=== PATIENT | male | born 1970 | race Caucasian/White ===

== ENCOUNTER 2019-01-17 15:34 | Inpatient (IN) ==
[2019-01-17 16:17] LABS: BASO# 0.03 X1000 (0.0-0.2); BASO% 0.5 % (0.0-0.8); EOS# 0.01 X1000 (0.0-0.7); EOS% 0.2 % (0.0-10.0); HEMOGLOBIN 16.6 g/dL (14.0-18.0); IMM GRAN# 0.01 X1000 (0.0-0.04); IMM GRAN% 0.2 % (0.0-0.5); LYMPH# 2.64 X1000 (1.2-3.4); LYMPH% 41.7 % (20.5-51.1); MCHC 33.9 g/dL (33-37); MCV 94.4 FL (81-99); MONO# 0.59 X1000 (0.11-0.59); MONO% 9.3 % (1.7-9.3); NEUT# 3.05 X1000 (1.4-6.5); NEUT% 48.1 % (42.2-75.2); PLT 179 X1000 (130-400); RBC 5.19 XMIL (4.7-6.1); RDW 13.8 % (11.5-14.5); WBC 6.33 X1000 (4.8-10.8)
[2019-01-17 16:32] LABS: AGAP 26; ALBUMIN 4.4 g/dL (3.5-5.0); ALKALINE PHOSPHATASE 88 U/L (32-122); BUN 9 mg/dL (8-22); CALCIUM 8.5 mg/dL (8.8-10.2); CHLORIDE 98 mmol/L (98-107); COSMO 284; CREATININE 0.6 mg/dL (0.7-1.2); ESTIMATED GFR > 60; GLUCOSE 146 mg/dL (70-104); GOT 170 U/L (10-34); GPT 140 U/L (10-44); LIPASE 70 U/L (13-60); POTASSIUM 3.9 mmol/L (3.5-5.1); SODIUM 142 mmol/L (136-145); TCO2 17 mmol/L (25-35); TOTAL PROTEIN 7.1 g/dL (6.3-8.3)
[2019-01-17] MEDS ORDERED: NS 1,000 ML IV ONE ×2 (16:51→19:07)
[2019-01-17 16:55] LABS: BILIRUBIN URINE NEGATIVE (NEGATIVE); BLOOD URINE 2+ (NEGATIVE); CLARITY CLEAR (CLEAR); COLOR YELLOW; GLUCOSE URINE NEGATIVE (NEGATIVE); KETONE URINE NEGATIVE (NEGATIVE); LEUKOCYTES URINE NEGATIVE (NEGATIVE); NITRITE URINE NEGATIVE (NEGATIVE); PROTEIN URINE 1+(30 mg/dL) mg/dL (NEGATIVE); UROBILINOGEN URINE NORMAL
[2019-01-17 16:56] LABS: UR AMPHETAMINES QUAL NONE DETECTED (NONE DETECT); UR BARBITUATES QUAL NONE DETECTED (NONE DETECT); UR BENZODIAZEPIN QUAL NONE DETECTED (NONE DETECT); UR CANNABINOIDS QUAL NONE DETECTED (NONE DETECT); UR COCAINE QUAL NONE DETECTED (NONE DETECT); UR METHADONE QUAL NONE DETECTED (NONE DETECT); UR METHAMPHETAMINE QUAL NONE DETECTED (NONE DETECT); UR OPIATES QUAL NONE DETECTED (NONE DETECT); UR OXYCODONE QUAL NONE DETECTED (NONE DETECT); UR PCP QUAL NONE DETECTED (NONE DETECT); UR PROPOXYPHENE QUAL NONE DETECTED (NONE DETECT); UR TCA QUAL NONE DETECTED (NONE DETECT); URINE BACTERIA 1+ /HFP; URINE CAST EPITHELIAL PRESENT /LPF; URINE CRYSTAL NONE SEEN /HPF; URINE EPITHELIAL CELLS <10 /HPF (<10); URINE RBC <10 /HPF (<10); URINE SOURCE CLEAN CATCH; URINE WBC <10 /HPF (<10); URINE YEAST NONE SEEN /HPF
--- NOTE | 2019-01-17 17:22 | EKG Report ---
Test Performed on : 01/17/2019 3:59:10 PM Test Reason : tachycardia etoh psych Blood Pressure : / mmHG Vent. Rate : 126 BPM Atrial Rate : 126 BPM P-R Int : 142 ms QRS Dur : 080 ms QT Int : 304 ms P-R-T Axes : 051 -03 052 degrees QTc Int : 440 ms Sinus tachycardia. Cannot rule out Anterior infarct , age undetermined Abnormal ECG When compared with ECG of 12-FEB-2017 22:01, Minimal criteria for Inferior infarct are no longer present Unconfirmed Result
[2019-01-17 17:59] LABS: FREE T4 1.38 ng/dL (0.93-1.70); TSH 0.97 uIUmL (0.27-4.20)
[2019-01-17] MEDS: ATIVAN IV PRN (21:06)
[2019-01-18] MEDS: ATIVAN IV PRN ×4 (00:07→17:31)
[2019-01-18] MEDS ORDERED: ATIVAN IV ONE (06:37)
[2019-01-18] MEDS ORDERED: BENTYL PO PRN (06:49)
[2019-01-18] MEDS ORDERED: ATARAX PO PRN (06:49)
[2019-01-18] MEDS ORDERED: SALINE LOCK IV FLUID XX ONE (06:49)
[2019-01-18] MEDS ORDERED: M.V.I.-12 10 ML, FOLIC ACID 1 MG, MAGNESIUM SULFATE 1 GM, THIAMINE 100 MG in NS 1,000 ML IV ONE ×2 (06:49→08:00)
[2019-01-18] MEDS: LIBRIUM PO SCH ×3 (07:31→18:26)
[2019-01-18] MEDS ORDERED: THORAZINE 25 MG in NS 25 ML IV PRN (09:49)
[2019-01-18] MEDS ORDERED: ATARAX PO SCH (11:30)
[2019-01-18] MEDS: NS 1,000 ML IV SCH ×2 (11:47→20:29)
[2019-01-18 13:37] LABS: HEMOGLOBIN 12.4 g/dL (14.0-18.0); MCH 31.8 PG (27-31); MCHC 33.5 g/dL (33-37); MCV 94.9 FL (81-99); MPV 10.2 FL (7.4-10.4); RBC 3.9 XMIL (4.7-6.1); RDW 13.2 % (11.5-14.5); WBC 3.23 X1000 (4.8-10.8)
--- NOTE | 2019-01-18 13:46 | HISTORY AND PHYSICAL ---
ADDENDUM: I saw the patient [id number] and fully agree with the assessment and plan of nurse practitioner, Lia Valle. This is a 48-year-old gentleman, who had suicidal ideation and has been drinking alcohol excessively. He has been agitated and has been having possible alcohol withdrawal because of which we have initiated him on IV Ativan drip. We are going to keep him here in the intensive care unit with supportive care, including IV fluids and banana bags. We will have a [facility] evaluation once he is medically stable. cc: Kassandra Medina MD
[2019-01-18 14:01] LABS: AGAP 11; ALBUMIN 3.1 g/dL (3.5-5.0); ALKALINE PHOSPHATASE 66 U/L (32-122); BUN 7 mg/dL (8-22); CALCIUM 7.1 mg/dL (8.8-10.2); CHLORIDE 104 mmol/L (98-107); COSMO 275; CREATININE 0.5 mg/dL (0.7-1.2); ESTIMATED GFR > 60; GLUCOSE 95 mg/dL (70-104); GOT 110 U/L (10-34); GPT 85 U/L (10-44); MAGNESIUM 0.8 mg/dL (1.5-2.7); POTASSIUM 3.2 mmol/L (3.5-5.1); SODIUM 139 mmol/L (136-145); TCO2 24 mmol/L (25-35); TOTAL PROTEIN 4.8 g/dL (6.3-8.3)
[2019-01-18] MEDS ORDERED: MAGNESIUM SULFATE 2 GM/S.W.I. 2 GM/50 ML IVPB IV ONE (14:04)
[2019-01-18] MEDS ORDERED: POTASSIUM CHLORIDE 20 MEQ/SWI 20 MEQ/100 ML IVPB IV ONE (14:04)
--- NOTE | 2019-01-18 14:18 | HISTORY AND PHYSICAL ---
CHIEF COMPLAINT: Alcohol intoxication, suicidal ideation. HISTORY OF PRESENT ILLNESS: This is a 48-year-old gentleman with a prior history of alcohol use and abuse, diabetes mellitus, hypertension and depression. He presented to the emergency room with his daughter who stated that the patient is intoxicated, he has been drinking continuously for the last week calling her daily stating that he is going to drink itself to . The patient lost his job 6 months ago secondary to alcohol and a DUI and he is . He has been because of alcohol. He was found to have a blood alcohol of 446 on arrival to the emergency room. He was given a banana bag, Ativan along with IV hydration and admitted to ICU for further evaluation. PAST MEDICAL HISTORY: 1. Diabetes mellitus type 2. 2. Hypertension. 3. Obstructive sleep apnea. 4. Gastroesophageal reflux disease. 5. Rheumatoid arthritis. 6. Depression. 7. Anxiety. PAST SURGICAL HISTORY: Gastric bypass, left foot surgery and tonsillectomy. SOCIAL HISTORY: He drinks vodka daily. He denies illicit drug use. He does smoke a pack a day. He is . He lives alone. He lost his job 6 months ago secondary to a DUI. REVIEW OF SYSTEMS: Discussed with the patient with pertinent positives stated in the HPI. He denied any syncope, dizziness, chest pain, palpitations, shortness of breath, cough, fever, chills, any night sweats, any recent weight loss or weight gain, nausea, vomiting, diarrhea, constipation, any black or bloody vomitus or stools, any hematuria, dysuria, frequency, urgency. PHYSICAL EXAMINATION: GENERAL: This is a 48-year-old gentleman who is sitting up in the ICU. He is anxious. VITAL SIGNS: Blood pressure is 146/94 with a heart rate ranging from 100 to 126, respirations are 20 to 22, temperature 99.1 degrees with room air saturations 95% on. HEENT: Pupils are equal, round, react to light. EOMs are intact. Sclerae anicteric. Head is normocephalic, atraumatic. Mucous membranes are moist. NECK: Supple with trachea midline. CARDIOVASCULAR: Regular rate and rhythm. S1 and S2 are appreciated. He is tachycardic. He does have some generalized lower extremity edema. Calves are nontender bilateral with peripheral pulses palpable x4 extremities. PULMONARY: Breath sounds are clear with no increased work of breathing noted. Chest rises and falls symmetric with respiration. Chest wall is nontender to palpation. GASTROINTESTINAL: Abdomen soft, nontender, nondistended with bowel sounds in all 4 quadrants. : No CVA or suprapubic tenderness. SKIN: Warm and dry. NEUROLOGIC: He is awake and alert and oriented. He appears anxious. LABS: WBC is 6.3 with hemoglobin 16.6, hematocrit 49, platelets 179,000. Sodium 142, potassium 3.9, BUN 9, creatinine 0.6 with a glucose of 146. TSH is 0.97 with a free T4 of 1.38. Urinalysis is essentially negative. Urine drug screen reveals none detected with blood alcohol being 446. EKG reveals sinus tachycardia at a rate of 126. ASSESSMENT AND PLAN: 1. Alcohol intoxication. 2. Alcoholic hepatitis. 3. Suicidal ideation. 4. Diabetes mellitus type 2. 5. Hypertension. 6. Gastroesophageal reflux disease. 7. Obstructive sleep apnea. 8. Depression. PLAN: The patient has been admitted to ICU and placed on telemetry which we will continue. We will continue with neuro checks. Will check a CBC, CMP and magnesium now and then again in the morning. Will start an Ativan drip. Continue with IV hydration. We will monitor electrolytes and replete as appropriate. Rotate saline with a banana bag daily, Prilosec daily. For DVT prophylaxis will use SCDs holding off on any anticoagulation as we are unsure of any history of varices or recent fall or injury. Further treatments pending hospital course. Plan was discussed with Dr. Medina. Dictated by RONALD Rowell for Kassandra Medina MD cc: RONLAD Rowell MD
[2019-01-18 18:41] LABS: AGAP 10; ALBUMIN 3.1 g/dL (3.5-5.0); BUN 7 mg/dL (8-22); CALCIUM 7.3 mg/dL (8.8-10.2); CHLORIDE 105 mmol/L (98-107); COSMO 276; CREATININE 0.6 mg/dL (0.7-1.2); ESTIMATED GFR > 60; GLUCOSE 133 mg/dL (70-104); PHOSPHORUS 1.8 mg/dL (2.7-4.5); POTASSIUM 3.4 mmol/L (3.5-5.1); SODIUM 138 mmol/L (136-145); TCO2 24 mmol/L (25-35)
[2019-01-18] MEDS: ATIVAN 20 MG in NS 190 ML IV SCH (19:30)
[2019-01-18] MEDS ORDERED: THORAZINE 25 MG in NS 25 ML IV ONE (22:00)
[2019-01-18 22:20] LABS: AGAP 13; ALBUMIN 3.4 g/dL (3.5-5.0); BUN 7 mg/dL (8-22); CALCIUM 7.5 mg/dL (8.8-10.2); CHLORIDE 104 mmol/L (98-107); COSMO 276; CREATININE 0.5 mg/dL (0.7-1.2); ESTIMATED GFR > 60; GLUCOSE 113 mg/dL (70-104); PHOSPHORUS 1.7 mg/dL (2.7-4.5); POTASSIUM 3.4 mmol/L (3.5-5.1); SODIUM 139 mmol/L (136-145); TCO2 23 mmol/L (25-35)
[2019-01-19] MEDS: LIBRIUM PO SCH ×2 (00:02→06:53)
[2019-01-19] MEDS: ATIVAN IV PRN ×12 (00:02→22:46)
[2019-01-19 02:12] LABS: AGAP 12; ALBUMIN 3.2 g/dL (3.5-5.0); BUN 5 mg/dL (8-22); CALCIUM 7.6 mg/dL (8.8-10.2); CHLORIDE 106 mmol/L (98-107); COSMO 279; CREATININE 0.5 mg/dL (0.7-1.2); ESTIMATED GFR > 60; GLUCOSE 100 mg/dL (70-104); PHOSPHORUS 2.1 mg/dL (2.7-4.5); POTASSIUM 3.2 mmol/L (3.5-5.1); SODIUM 141 mmol/L (136-145); TCO2 23 mmol/L (25-35)
[2019-01-19] MEDS: NS 1,000 ML IV SCH ×3 (05:19→21:17)
[2019-01-19] MEDS: ATIVAN 20 MG in NS 190 ML IV SCH ×3 (05:20→22:04)
[2019-01-19] MEDS ORDERED: THORAZINE IV PRN (06:02)
[2019-01-19] MEDS ORDERED: NS IV PRN (06:02)
[2019-01-19] MEDS: PRILOSEC PO SCH (06:53)
[2019-01-19 07:01] LABS: HEMATOCRIT 39.8 % (42.0-52.0); HEMOGLOBIN 13.1 g/dL (14.0-18.0); MCH 31.3 PG (27-31); MCHC 32.9 g/dL (33-37); MCV 95.2 FL (81-99); MPV 11.1 FL (7.4-10.4); RBC 4.18 XMIL (4.7-6.1); RDW 13.2 % (11.5-14.5); WBC 3.23 X1000 (4.8-10.8)
[2019-01-19 07:23] LABS: AGAP 10; ALBUMIN 3.3 g/dL (3.5-5.0); ALKALINE PHOSPHATASE 74 U/L (32-122); BUN 5 mg/dL (8-22); CALCIUM 7.9 mg/dL (8.8-10.2); CHLORIDE 108 mmol/L (98-107); COSMO 278; CREATININE 0.5 mg/dL (0.7-1.2); ESTIMATED GFR > 60; GLUCOSE 98 mg/dL (70-104); GOT 87 U/L (10-34); GPT 82 U/L (10-44); MAGNESIUM 1.2 mg/dL (1.5-2.7); POTASSIUM 3.3 mmol/L (3.5-5.1); SODIUM 141 mmol/L (136-145); TCO2 23 mmol/L (25-35); TOTAL PROTEIN 5.5 g/dL (6.3-8.3)
[2019-01-19] MEDS: ROBAXIN PO PRN ×3 (08:26→22:40)
[2019-01-19] MEDS ORDERED: THIAMINE IV ONE ×6 (09:00)
[2019-01-19] MEDS ORDERED: M V I IV ONE ×6 (09:00)
[2019-01-19] MEDS ORDERED: [UNRECOGNIZED DRUG - OTHER] IV ONE ×6 (09:00)
[2019-01-19] MEDS ORDERED: FOLIC ACID IV ONE ×6 (09:00)
[2019-01-19] MEDS ORDERED: MAGNESIUM SULFATE IV ONE ×6 (09:00)
[2019-01-19] MEDS ORDERED: MAGNESIUM SULFATE 2 GM/S.W.I. 2 GM/50 ML IVPB IV ONE (11:02)
[2019-01-19] MEDS ORDERED: KLOR-CON PO ONE (11:02)
--- NOTE | 2019-01-19 11:24 | PROGRESS NOTE ---
DATE: 01/19/2019 SUBJECTIVE: The patient denies having any acute complaints, but continues to have restlessness and periods of agitation. OBJECTIVE: Vital Signs: Temperature 97.9 degrees, pulse 101 per minute, respiratory rate 14 per minute, blood pressure 157/96, pulse oximetry 98% on room air. General: The patient is alert and oriented x3. He does not appear to be in any acute distress at this time. Cardiovascular: First and second heart sounds are audible without any murmurs or gallops. Respiratory: No respiratory distress noted. Bilateral lung air entry is good without any rales or rhonchi. Gastrointestinal: Abdomen is benign. DIAGNOSTIC DATA: CBC shows WBC count of 3.23, hemoglobin 13.1, hematocrit 39.8, and platelet count of 102,000. In comparison, his white blood cell count was 3.23 yesterday, and platelet counts were 92. Comprehensive metabolic panel obtained this morning showed potassium level of 3.3, and total bilirubin of 1.2, with AST 87 and ALT 82. Albumin levels were found to be 3.3. Rest of the comprehensive metabolic panel was nondiagnostic. Magnesium levels were found to be 1.2. IMPRESSION: 1. Suicidal ideation. 2. Alcohol abuse with hepatitis. 3. Hypokalemia and hypomagnesemia. PLAN: The patient is having alcohol withdrawal syndrome, and we are going to continue with IV lorazepam as per protocol. He will be kept in the intensive care unit, and we are going to continue giving him IV fluids along with general supportive care. Electrolyte supplements will also be provided, and we can move him out of the intensive care unit once he gets better. cc: Kassandra Medina MD
[2019-01-19] MEDS ORDERED: SEROQUEL PO ONE (15:53)
[2019-01-19] MEDS: NS IV PRN ×2 (18:09→22:03)
[2019-01-19] MEDS: THORAZINE IV PRN ×2 (18:09→22:03)
[2019-01-19] MEDS ORDERED: HALDOL IV ONE (19:02)
[2019-01-19] MEDS: SEROQUEL PO SCH (21:17)
[2019-01-19 23:11] LABS: BILIRUBIN URINE NEGATIVE (NEGATIVE); BLOOD URINE NEGATIVE (NEGATIVE); GLUCOSE URINE NEGATIVE (NEGATIVE); KETONE URINE NEGATIVE (NEGATIVE); LEUKOCYTES URINE NEGATIVE (NEGATIVE); NITRITE URINE NEGATIVE (NEGATIVE); PROTEIN URINE NEGATIVE (NEGATIVE); UROBILINOGEN URINE NORMAL
[2019-01-19 23:12] LABS: CLARITY CLEAR (CLEAR); COLOR YELLOW
[2019-01-19 23:19] LABS: URINE BACTERIA NEGATIVE /HFP; URINE EPITHELIAL CELLS <10 /HPF (<10); URINE RBC <10 /HPF (<10); URINE SOURCE CATH; URINE WBC <10 /HPF (<10)
[2019-01-20] MEDS: THORAZINE IV PRN (00:40)
[2019-01-20] MEDS: NS IV PRN (00:40)
[2019-01-20] MEDS: NS 1,000 ML IV SCH ×3 (04:12→21:11)
[2019-01-20] MEDS: PRILOSEC PO SCH (06:16)
[2019-01-20 06:36] LABS: EOS# 0.04 X1000 (0.0-0.7); EOS% 0.6 % (0.0-10.0); HEMATOCRIT 42.8 % (42.0-52.0); HEMOGLOBIN 14.1 g/dL (14.0-18.0); IMM GRAN# 0.01 X1000 (0.0-0.04); IMM GRAN% 0.2 % (0.0-0.5); LYMPH% 12.2 % (20.5-51.1); MCH 31.8 PG (27-31); MCHC 32.9 g/dL (33-37); MCV 96.6 FL (81-99); MONO# 0.31 X1000 (0.11-0.59); MONO% 4.7 % (1.7-9.3); MPV 11.7 FL (7.4-10.4); NEUT% 82.3 % (42.2-75.2); PLT 104 X1000 (130-400); RBC 4.43 XMIL (4.7-6.1); RDW 13.8 % (11.5-14.5); WBC 6.56 X1000 (4.8-10.8)
[2019-01-20 06:55] LABS: AGAP 16; BUN 3 mg/dL (8-22); CALCIUM 8.5 mg/dL (8.8-10.2); CHLORIDE 112 mmol/L (98-107); COSMO 294; CREATININE 0.4 mg/dL (0.7-1.2); ESTIMATED GFR > 60; GLUCOSE 153 mg/dL (70-104); MAGNESIUM 1.2 mg/dL (1.5-2.7); POTASSIUM 3.6 mmol/L (3.5-5.1); SODIUM 148 mmol/L (136-145); TCO2 20 mmol/L (25-35)
[2019-01-20] MEDS: PRINIVIL PO SCH ×2 (10:42→21:11)
[2019-01-20] MEDS: SEROQUEL PO SCH ×2 (10:43→21:11)
[2019-01-20] MEDS ORDERED: OFIRMEV 1000 MG/ISOTONIC SOLN 1,000 MG/100 ML BOTTLE IV PRN (12:53)
[2019-01-20] MEDS: ATIVAN 20 MG in NS 190 ML IV SCH (17:28)
[2019-01-20] MEDS: ATIVAN IV PRN (21:16)
--- NOTE | 2019-01-20 22:57 | PROGRESS NOTE ---
DATE: 01/20/2019 SUBJECTIVE: Patient currently is somewhat sedated as he is on an Ativan drip. PHYSICAL EXAMINATION: Vital Signs: Temperature 97.4, pulse 117, respiratory rate 18, BP 179/64 to 129/78. General: Patient is sedated. He is in no respiratory distress lying in the bed. HEENT: Normocephalic. Neck: Supple. Cardiovascular: Regular rate. Chest: Clear. Abdomen: Soft, obese. Extremities: Moves all extremities. Neurologic: No changes. ASSESSMENT: 1. Acute suicidal ideation. 2. Alcohol abuse with hepatitis. 3. Hypokalemia. 4. Hypomagnesemia. PLAN: We are going to continue to aggressively wean his Ativan drip. Continue to follow his labs. Blood pressures are improving. He is still somewhat tachycardic. TIME SPENT: 34 minutes was spent in total care. cc: Tawanda Conti MD
[2019-01-21] MEDS: ATIVAN IV PRN ×11 (00:51→23:46)
[2019-01-21] MEDS: NS IV PRN ×2 (00:52→09:52)
[2019-01-21] MEDS: THORAZINE IV PRN ×2 (00:52→09:52)
[2019-01-21] MEDS: NS 1,000 ML IV SCH ×3 (04:20→20:51)
[2019-01-21] MEDS: PRILOSEC PO SCH (06:22)
[2019-01-21] MEDS: PRINIVIL PO SCH ×3 (08:00→21:14)
[2019-01-21] MEDS: SEROQUEL PO SCH ×3 (08:00→21:15)
[2019-01-21 09:31] LABS: INR 0.97; PROTIME 13.4 Seconds (11.0-16.0)
--- NOTE | 2019-01-21 09:33 | PROGRESS NOTE ---
DATE: 01/21/2019 SUBJECTIVE: The patient, according to the nursing staff, continued to be agitated at times and needed to continue to be on an Ativan drip. No other issues noted overnight. OBJECTIVE: Vital Signs: Temperature 98.4 degrees, heart rate 80, respiratory rate 29, blood pressure 177/101, O2 saturation 98% on room air. General Examination: This is a chronically ill- appearing and looking older than his stated age, 48-year-old, male, lying in bed, in no acute distress. Cardiovascular Examination: S1 and S2 heard. No murmurs, gallops, or rubs. Regular rate and rhythm. Tachycardic. Respiratory Examination: Clear bilaterally to auscultation. No work of breathing or using accessory muscles. Abdomen: Soft. Nontender to palpation. Bowel sounds present. No organomegaly. Extremities: No clubbing, cyanosis, or edema. Peripheral pulses present in both legs. Neurological Examination: The patient continues to be confused, mumbled unintelligible words. Moved 4 extremities spontaneously. Laboratory Data: Pending. ASSESSMENT: 1. Alcohol intoxication. 2. Suicidal attempt. 3. Hypokalemia. 4. Hypomagnesemia. PLAN: At this point, I am not able to get any information about any suicidal ideation because the patient is very confused. I think from alcohol intoxication, he will go into alcohol withdrawal. We will continue with the Ativan drip. We are awaiting labs regarding liver function tests. I will adjust our treatment accordingly for hypokalemia and hypomagnesemia. If those problems still persist, we will replenish those. cc: Marek Martinez MD
[2019-01-21 09:54] LABS: ALBUMIN 3.2 g/dL (3.5-5.0); DIRECT BILIRUBIN 0.3 mg/dL (0.00-0.20); MAGNESIUM 1.2 mg/dL (1.5-2.7); PHOSPHORUS 2.9 mg/dL (2.7-4.5); TOTAL BILIRUBIN 0.8 mg/dL (0.20-1.00); TOTAL PROTEIN 5.1 g/dL (6.3-8.3)
[2019-01-21 09:57] LABS: AGAP 11; BUN 6 mg/dL (8-22); CALCIUM 8.3 mg/dL (8.8-10.2); CHLORIDE 108 mmol/L (98-107); COSMO 275; CREATININE 0.5 mg/dL (0.7-1.2); ESTIMATED GFR > 60; GLUCOSE 89 mg/dL (70-104); POTASSIUM 3.5 mmol/L (3.5-5.1); SODIUM 139 mmol/L (136-145); TCO2 21 mmol/L (25-35)
[2019-01-21] MEDS: HALDOL IV PRN ×3 (10:42→21:03)
[2019-01-21] MEDS: VASOTEC IV SCH (15:37)
[2019-01-21] MEDS: ATIVAN 20 MG in NS 190 ML IV SCH (17:22)
[2019-01-21] MEDS: APRESOLINE IV PRN (22:09)
[2019-01-22] MEDS: ATIVAN IV PRN ×9 (00:45→23:38)
[2019-01-22] MEDS: HALDOL IV PRN ×3 (01:14→23:38)
[2019-01-22] MEDS: THORAZINE IV PRN (01:49)
[2019-01-22] MEDS: NS IV PRN (01:49)
[2019-01-22] MEDS: NS 1,000 ML IV SCH ×3 (02:55→19:17)
[2019-01-22] MEDS: VASOTEC IV SCH ×2 (02:58→15:54)
[2019-01-22] MEDS: APRESOLINE IV PRN ×2 (04:25→23:38)
[2019-01-22 05:54] LABS: AGAP 18; BUN 4 mg/dL (8-22); CALCIUM 8.5 mg/dL (8.8-10.2); CHLORIDE 107 mmol/L (98-107); COSMO 279; CREATININE 0.4 mg/dL (0.7-1.2); ESTIMATED GFR > 60; GLUCOSE 88 mg/dL (70-104); MAGNESIUM 1.1 mg/dL (1.5-2.7); SODIUM 142 mmol/L (136-145); TCO2 18 mmol/L (25-35)
[2019-01-22 06:14] LABS: ALBUMIN 3.3 g/dL (3.5-5.0); DIRECT BILIRUBIN 0.3 mg/dL (0.00-0.20); TOTAL BILIRUBIN 0.8 mg/dL (0.20-1.00); TOTAL PROTEIN 5.3 g/dL (6.3-8.3)
[2019-01-22] MEDS: PRILOSEC PO SCH (08:55)
[2019-01-22] MEDS ORDERED: POTASSIUM CHLORIDE 60 MEQ in NS 500 ML IV ONE (09:43)
[2019-01-22] MEDS: SEROQUEL PO SCH ×2 (09:58→20:49)
--- NOTE | 2019-01-22 11:01 | PROGRESS NOTE ---
DATE: 01/22/2019 SUBJECTIVE: Patient, according to the nursing staff, has been agitated overnight and needed to have restraints and also a Ativan drip and also added Haldol IV push as needed. Upon my examination this morning, he is still sleepy. OBJECTIVE: Vital Signs: Temperature 97.6 degrees, heart rate 101, respiratory rate 20, blood pressure 140/87, O2 saturation 96% on room air. General Examination: This is a chronically ill- appearing, looking older than his stated age 48-year-old male lying in bed in no acute distress. Cardiovascular: S1, S2 heard. No murmurs, gallops, or rubs. Regular rate and rhythm. Respiratory: Clear bilaterally to auscultation. No work of breathing. Not using accessory muscles. Abdomen: Soft, a little bit distended but nontender to palpation. Bowel sounds present. No organomegaly. Extremities: No clubbing, cyanosis, or edema. Peripheral pulses present in both legs. Neurological: The patient continues to be confused. At this time, he is lethargic because he received Ativan. Moves all 4 extremities spontaneously. LABORATORY DATA: Reviewed. ASSESSMENT AND PLAN: 1. Alcohol intoxication. 2. Suicidal attempt. 3. Hypokalemia. 4. Hyponatremia. PLAN: At this point, the patient continues to be agitated. He was admitted for alcohol intoxication but I think now he should be going through alcohol withdrawal. He is agitated. I think considering that he is drinking plenty of alcohol since he is in his 20s, I think he may have a degree of cognitive impairment secondary to chronic alcohol abuse. In any case, we will continue to monitor this patient closely here in the intensive care unit. Monitor also his electrolytes. Today the potassium is 3.0. We are going to replenish it as well as magnesium which is 1.1 today. Phosphorus is okay. Family in this case, daughter and , are in the room so they have been informed about the prognosis. cc: Marek aMrtinez MD
[2019-01-22] MEDS: ATIVAN 20 MG in NS 190 ML IV SCH (18:16)
[2019-01-22] MEDS: ROBAXIN PO PRN (19:17)
[2019-01-23] MEDS: ATIVAN IV PRN ×4 (01:20→20:02)
[2019-01-23] MEDS: VASOTEC IV SCH ×2 (03:32→15:40)
[2019-01-23] MEDS: NS IV PRN (03:33)
[2019-01-23] MEDS: NS 1,000 ML IV SCH (03:33)
[2019-01-23] MEDS: HALDOL IV PRN (03:33)
[2019-01-23] MEDS: THORAZINE IV PRN (03:33)
[2019-01-23] MEDS: PRILOSEC PO SCH (06:10)
[2019-01-23 06:30] LABS: AGAP 14; BUN 5 mg/dL (8-22); CALCIUM 8.7 mg/dL (8.8-10.2); CHLORIDE 111 mmol/L (98-107); COSMO 282; CREATININE 0.4 mg/dL (0.7-1.2); ESTIMATED GFR > 60; GLUCOSE 91 mg/dL (70-104); POTASSIUM 3.1 mmol/L (3.5-5.1); SODIUM 143 mmol/L (136-145); TCO2 18 mmol/L (25-35)
[2019-01-23 06:43] LABS: TOTAL BILIRUBIN 0.6 mg/dL (0.20-1.00)
[2019-01-23 06:44] LABS: ALBUMIN 3.1 g/dL (3.5-5.0); DIRECT BILIRUBIN 0.2 mg/dL (0.00-0.20); TOTAL PROTEIN 5.8 g/dL (6.3-8.3)
[2019-01-23] MEDS ORDERED: POTASSIUM CHLORIDE 60 MEQ in NS 500 ML IV ONE (08:20)
[2019-01-23 08:31] LABS: HEMATOCRIT 38.8 % (42.0-52.0); MCH 31.9 PG (27-31); MCHC 33.5 g/dL (33-37); MCV 95.3 FL (81-99); MPV 10.9 FL (7.4-10.4); RBC 4.07 XMIL (4.7-6.1); RDW 13.5 % (11.5-14.5); WBC 4.29 X1000 (4.8-10.8)
[2019-01-23] MEDS: SEROQUEL PO SCH ×2 (08:33→20:02)
[2019-01-23] MEDS: NORVASC PO SCH ×2 (09:27→20:02)
--- NOTE | 2019-01-23 10:04 | PROGRESS NOTE ---
DATE: 01/23/2019 SUBJECTIVE: The patient looks to be a little bit more oriented today. He was eating part of his meal yesterday. OBJECTIVE: Vital Signs: Temperature 97.5 degrees, heart rate 96, respiratory rate 20, blood pressure 174/106, O2 saturation 96% on room air. General: This is a 48-year-old male lying in bed in no acute distress. Cardiovascular: S1, S2 heard. No murmurs, gallops, or rubs. Regular rate and rhythm. Respiratory: Clear bilaterally to auscultation. No work of breathing or using accessory muscles. Abdomen: Soft, a little bit distended. Nontender to palpation. Bowel sounds present. No organomegaly. Extremities: No clubbing. No cyanosis or edema. Peripheral pulses present in both legs. Neurological: Patient is a little bit less confused but not agitated at this time. He continues to be on Ativan drip. Moves 4 extremities spontaneously. LABORATORY DATA: CBC is okay with BMP that reveals potassium 3.1. ASSESSMENT AND PLAN: 1. Alcohol intoxication. 2. Suicidal attempt. 3. Hypokalemia. PLAN: At this point, the patient is a little bit more awake today so we are going to stop Ativan drip, and see how he does. If he becomes restless again, we will restart the drip. The patient also is on Haldol IV p.r.n. for agitation as well. We are going to replenish potassium today. We will continue to monitor this patient here in the intensive care unit. Whenever the patient is more alert and awake, we will consult [facility] for this suicidal attempt. At this point, we will continue to monitor. cc: Marek Martinez MD [facility]
[2019-01-23] MEDS: CLINIMIX E 4.25%-5% SOLUTION 1,000 ML IV SCH ×2 (12:47→22:52)
[2019-01-23] MEDS: LIPOSYN 20% 250 ML IV SCH (12:55)
[2019-01-24] MEDS: APRESOLINE IV PRN ×2 (01:16→23:10)
[2019-01-24] MEDS: ATIVAN IV PRN ×5 (01:38→23:20)
[2019-01-24] MEDS: VASOTEC IV SCH ×2 (02:54→16:12)
[2019-01-24] MEDS: HALDOL IV PRN (04:03)
[2019-01-24] MEDS: PRILOSEC PO SCH (06:00)
[2019-01-24 06:45] LABS: HEMATOCRIT 40.6 % (42.0-52.0); HEMOGLOBIN 13.7 g/dL (14.0-18.0); MCH 31.4 PG (27-31); MCHC 33.7 g/dL (33-37); MCV 92.9 FL (81-99); MPV 10.4 FL (7.4-10.4); RBC 4.37 XMIL (4.7-6.1); RDW 13.3 % (11.5-14.5); WBC 3.85 X1000 (4.8-10.8)
[2019-01-24 06:47] LABS: AGAP 12; BUN 4 mg/dL (8-22); CALCIUM 9.3 mg/dL (8.8-10.2); CHLORIDE 107 mmol/L (98-107); COSMO 277; CREATININE 0.4 mg/dL (0.7-1.2); ESTIMATED GFR > 60; GLUCOSE 111 mg/dL (70-104); POTASSIUM 3.3 mmol/L (3.5-5.1); SODIUM 140 mmol/L (136-145); TCO2 21 mmol/L (25-35)
[2019-01-24] MEDS ORDERED: POTASSIUM CHLORIDE 60 MEQ in NS 500 ML IV ONE (10:00)
[2019-01-24] MEDS: LOPRESSOR IV SCH ×3 (10:10→23:10)
[2019-01-24] MEDS: LIPOSYN 20% 250 ML IV SCH (10:11)
[2019-01-24] MEDS: NORVASC PO SCH ×2 (10:11→20:28)
[2019-01-24] MEDS: SEROQUEL PO SCH ×2 (10:11→20:28)
--- NOTE | 2019-01-24 10:11 | PROGRESS NOTE ---
DATE: 01/24/2019 SUBJECTIVE: The patient unfortunately continues to be more confused. Even though he answers some basic questions he is restless most of the time. OBJECTIVE: Vital Signs: Temperature 99.2 degrees, heart rate 116, respiratory 24, blood pressure 169/105, O2 saturation 98% on room air. General: This is a 48-year-old male, lying in bed, in no acute distress. Cardiovascular: S1, S2 heard. No murmurs, gallops, or rubs. Regular rate and rhythm. Respiratory: Clear bilaterally to auscultation. No work of breathing or using accessory muscles. Abdomen: Soft, nontender. A little bit distended. Nontender to palpation. Bowel sounds present. No organomegaly. Extremities: No clubbing, cyanosis, or edema. Peripheral pulses present in both legs. Neurological: Patient is alert and oriented x3. Moves 4 extremities. LABORATORY DATA: Reviewed. ASSESSMENT AND PLAN: 1. Alcohol intoxication. 2. Metabolic encephalopathy. 3. Suicidal attempt. 4. Hypokalemia. At this point, patient continues to be confused. We will continue with Ativan drip. Because patient is not able to eat we are going to continue with Clinimix and lipids. We will replenish potassium today. We will continue to monitor this patient in intensive care unit. Because of his still elevated blood pressure and tachycardia we will add metoprolol 5 mg IV 6 hours scheduled to his current medications. We will continue to monitor this patient closely. cc: Marek Martinez MD
[2019-01-24] MEDS: CLINIMIX E 4.25%-5% SOLUTION 1,000 ML IV SCH ×2 (10:52→23:31)
[2019-01-25] MEDS: VASOTEC IV SCH ×2 (03:47→15:24)
[2019-01-25] MEDS: ATIVAN IV PRN ×11 (03:47→20:19)
[2019-01-25] MEDS: LOPRESSOR IV SCH ×3 (03:47→15:24)
[2019-01-25 06:03] LABS: HEMATOCRIT 40.9 % (42.0-52.0); HEMOGLOBIN 13.6 g/dL (14.0-18.0); MCH 31.3 PG (27-31); MCHC 33.3 g/dL (33-37); MPV 10.2 FL (7.4-10.4); RBC 4.35 XMIL (4.7-6.1); RDW 13.4 % (11.5-14.5); WBC 4.5 X1000 (4.8-10.8)
[2019-01-25] MEDS ORDERED: MAGNESIUM SULFATE 2 GM/S.W.I. 2 GM/50 ML IVPB IV ONE (08:06)
[2019-01-25] MEDS: PRILOSEC PO SCH (08:16)
[2019-01-25] MEDS: POTASSIUM CHLORIDE 20 MEQ/SWI 20 MEQ/100 ML IVPB IV SCH ×2 (08:23→12:27)
[2019-01-25] MEDS: LIPOSYN 20% 250 ML IV SCH (08:24)
[2019-01-25] MEDS: HALDOL IV PRN ×3 (08:34→16:25)
[2019-01-25] MEDS: SEROQUEL PO SCH ×2 (09:24→20:13)
[2019-01-25] MEDS: NORVASC PO SCH ×2 (09:24→20:14)
--- NOTE | 2019-01-25 10:05 | PROGRESS NOTE ---
DATE: 01/25/2019 SUBJECTIVE: The patient remains disoriented and is not able to communicate. He has been getting Ativan that makes sedated as well. OBJECTIVE: Vital Signs: Temperature 98.6 degrees, pulse 103 per minute, respiratory rate 21 per minute, blood pressure 137/82, pulse oximetry 99% on room air. General: Patient is sedated. He opens his eyes momentarily but is not able to communicate at this time. Cardiovascular System: First and second heart sounds are audible without any murmurs or gallops. Respiratory System: Bilateral lung air entry is moderately decreased but there are no rales or rhonchi. Gastrointestinal system: Abdomen is soft and nondistended. Patient is morbidly obese. Normal bowel sounds are present. Musculoskeletal System: No deformities are present. DIAGNOSTIC DATA: CBC is nondiagnostic and chemistry showed potassium level of 3.3 and magnesium levels were done 2 days ago and were found to be 1.1. Rest of the basic metabolic panel done this morning is nondiagnostic. IMPRESSION: 1. Alcohol withdrawal syndrome with history of suicidal ideation. 2. Hypokalemia. 3. Hypomagnesemia. PLAN: We will replenish his potassium and magnesium intravenously and keep giving him Ativan as needed as per protocol for his alcohol withdrawal symptoms. We will continue with supportive care and follow hospital course. cc: Kassandra Medina MD
[2019-01-25] MEDS: APRESOLINE IV PRN (10:58)
[2019-01-25] MEDS: CLINIMIX E 4.25%-5% SOLUTION 1,000 ML IV SCH (15:24)
[2019-01-25] MEDS: ROBAXIN PO PRN (20:14)
[2019-01-26] MEDS: LOPRESSOR IV SCH ×4 (01:08→18:37)
[2019-01-26] MEDS: ATIVAN IV PRN ×4 (01:09→15:54)
[2019-01-26] MEDS: CLINIMIX E 4.25%-5% SOLUTION 1,000 ML IV SCH ×2 (04:48→18:30)
[2019-01-26] MEDS: VASOTEC IV SCH ×2 (04:48→15:54)
[2019-01-26] MEDS: PRILOSEC PO SCH (06:07)
[2019-01-26 06:23] LABS: MCH 31.4 PG (27-31); MCHC 33.3 g/dL (33-37); MCV 94.2 FL (81-99); MPV 10.3 FL (7.4-10.4); RBC 4.46 XMIL (4.7-6.1); RDW 13.2 % (11.5-14.5); WBC 4.15 X1000 (4.8-10.8)
[2019-01-26 06:54] LABS: AGAP 12; ALBUMIN 3.6 g/dL (3.5-5.0); ALKALINE PHOSPHATASE 74 U/L (32-122); BUN 7 mg/dL (8-22); CALCIUM 9.5 mg/dL (8.8-10.2); CHLORIDE 105 mmol/L (98-107); COSMO 276; CREATININE 0.4 mg/dL (0.7-1.2); ESTIMATED GFR > 60; GLUCOSE 109 mg/dL (70-104); GOT 32 U/L (10-34); GPT 35 U/L (10-44); MAGNESIUM 1.6 mg/dL (1.5-2.7); POTASSIUM 3.6 mmol/L (3.5-5.1); SODIUM 139 mmol/L (136-145); TCO2 22 mmol/L (25-35); TOTAL PROTEIN 6.7 g/dL (6.3-8.3)
[2019-01-26] MEDS: NORVASC PO SCH ×2 (08:39→23:16)
[2019-01-26] MEDS: SEROQUEL PO SCH ×2 (08:41→21:16)
[2019-01-26] MEDS: LIPOSYN 20% 250 ML IV SCH (08:49)
--- NOTE | 2019-01-26 10:55 | PROGRESS NOTE ---
DATE: 01/26/2019 SUBJECTIVE: The patient apparently is not requiring an Ativan drip. He had been requiring some Ativan pushes yesterday but he was not on anything during the last night. He is sleepy to my examination this morning and no other issues noted as per nursing staff overnight. OBJECTIVE: Vital Signs: Temperature 97.6 degrees, heart rate 87, respiratory rate 20, blood pressure 140/87, O2 saturation 94% on room air. General Examination: This is a 48-year-old, male, lying in bed, in no acute distress. Cardiovascular Examination: S1 and S2 heard. No murmurs, gallops, or rubs. Regular rate and rhythm. Respiratory Examination: Clear bilaterally to auscultation. No work of breathing or using accessory muscles. Abdomen: Soft, nontender to palpation. Bowel sounds present. No organomegaly. Extremities: No clubbing, cyanosis, or edema. Peripheral pulses present in both legs. Neurological Examination: The patient is still sleepy but awakes to verbal stimuli. Moves 4 extremities spontaneously. Laboratory Data: Reviewed. ASSESSMENT AND PLAN: 1. Alcohol withdrawal syndrome with history of suicidal ideation. 2. Hypokalemia. 3. Hyponatremia. 4. At this point, the patient is more stable so we will see how he does in the intensive care unit. Try not to give him any sedating medications, only as needed. We will continue with Clinimix and lipids. He is more awake and alert. We will let him eat as of today. We will continue to monitor this patient in the intensive care unit. cc: Marek Martinez MD
[2019-01-26] MEDS ORDERED: NS 1,000 ML IV ONE (18:34)
[2019-01-27] MEDS: LOPRESSOR IV SCH ×2 (01:57→07:07)
[2019-01-27] MEDS: VASOTEC IV SCH (03:50)
[2019-01-27] MEDS: PRILOSEC PO SCH (07:07)
[2019-01-27] MEDS: LIPOSYN 20% 250 ML IV SCH (07:16)
[2019-01-27] MEDS: NORVASC PO SCH ×2 (08:11→21:34)
[2019-01-27] MEDS: SEROQUEL PO SCH ×2 (08:12→21:35)
[2019-01-27] MEDS ORDERED: LOPRESSOR IV PRN (10:29)
--- NOTE | 2019-01-27 10:35 | PROGRESS NOTE ---
DATE: 01/27/2019 SUBJECTIVE: Patient is not requiring Ativan drip but he has been very sleepy over the last 24 hours. Patient has not received any Ativan p.r.n. for last 3 hours but is receiving Seroquel 50 mg p.o. b.i.d. OBJECTIVE: Vital Signs: Temperature 96.7 degrees, heart rate 84, respiratory rate 20, blood pressure 139/84, O2 saturation 96% on room air. General: This is a 48-year-old male lying in bed, in no acute distress. Cardiovascular: S1, S2 heard. No murmurs, gallops, or rubs. Regular rate and rhythm. Respiratory: Clear bilaterally to auscultation. No work of breathing or using accessory muscles. Abdomen: Soft, nontender to palpation. Bowel sounds present. No organomegaly. Extremities: No clubbing, cyanosis, or edema. Peripheral pulses present in both legs. Neurological: Patient is sleepy. Awakes to verbal stimuli. Moves 4 extremities spontaneously. LABORATORY DATA: Reviewed. ASSESSMENT AND PLAN: Alcohol withdrawal syndrome. At this point, we will continue current management. The patient is sedated so we are going to decrease the dose of Seroquel to 25 mg p.o. b.i.d. We are trying not giving him any sedating medication and see how he does. Because he is not able to eat, will continue with Clinimix and lipids. If he is more awake, let him eat today. We will continue to monitor this patient in intensive care unit. cc: Marek Martinez MD M[facility]
[2019-01-27] MEDS: CLINIMIX E 4.25%-5% SOLUTION 1,000 ML IV SCH ×2 (10:54→23:38)
[2019-01-28] MEDS: PRILOSEC PO SCH (06:10)
[2019-01-28] MEDS: LIPOSYN 20% 250 ML IV SCH (06:10)
[2019-01-28] MEDS: NORVASC PO SCH ×2 (09:25→21:31)
[2019-01-28] MEDS: SEROQUEL PO SCH ×2 (09:26→21:31)
--- NOTE | 2019-01-28 19:52 | PROGRESS NOTE ---
DATE: 01/28/2019 SUBJECTIVE: Patient this morning is much more awake, alert, oriented. He is in no current respiratory distress. States that he feels much better. PHYSICAL EXAMINATION: Temperature 97.6, pulse 89, respiratory 18, BP 109/67.General: Patient is in no respiratory distress. He is very pleasant. He is oriented. HEENT: Normocephalic. Neck: Supple. Cardiovascular: Regular rate. Chest: Clear. Abdomen: Soft. Extremities: Moves all extremities. Neurologic: No changes. ASSESSMENT: Acute alcohol withdrawal with metabolic encephalopathy, both of which appear to have resolved. PLAN: We are going to move him to the floor. Hopefully he can continue to improve and possibly be discharged home over the next day or 2. cc: Tawanda Conti MD
[2019-01-29] MEDS: PRILOSEC PO SCH ×2 (04:59→06:02)
[2019-01-29] MEDS ORDERED: REVIA PO SCH (09:00)
[2019-01-29] MEDS ORDERED: VIVITROL IM ONE (09:00)
[2019-01-29] MEDS: NORVASC PO SCH (09:26)
[2019-01-29] MEDS: SEROQUEL PO SCH (09:27)
[2019-01-29 11:29] VITALS: BP 137/95
--- NOTE | 2019-01-29 13:00 | DISCHARGE SUMMARY ---
ADMISSION DATE: 01/17/2019 DISCHARGE DATE: 01/29/2019 CONSULTATIONS: None. PERTINENT PROCEDURES: None. DISCHARGE DIAGNOSES: 1. Acute alcohol withdrawal, metabolic encephalopathy, both which have resolved. The patient will be discharged home to follow up with primary care. 2. Diabetes mellitus type 2. 3. Hypertension. 4. Sleep apnea. 5. Gastroesophageal reflux disease. 6. Rheumatoid arthritis. 7. Depression and anxiety. HOSPITAL COURSE: Briefly, Mr. Thibodeaux is a 48-year-old gentleman with a prior history of alcohol use and abuse, diabetes mellitus, hypertension, and depression, presented to the ED with daughter stating that the patient was intoxicated. He had been drinking continuously and calling her daily stating that he was going to drink himself to . He had lost his job 6 months ago secondary to alcohol and a DUI and was also because of the alcohol. He was found to have a blood alcohol of 446 on arrival. He was given a banana bag, Ativan, and IV hydration, admitted to the ICU. Slowly over the course of his hospital stay all of his symptoms improved and his encephalopathy resolved. He will be given Vivitrol IM now and discharged home on ReVia and we will have Dain Vicente come and speak with him secondary to daughter saying that he was having suicidal ideations. VITAL SIGNS: At time of discharge, temperature is 98.2 degrees, heart rate 97, respirations 16, blood pressure 132/88, O2 is 100% on room air. DISCHARGE DIET: Regular. DISCHARGE MEDICATIONS: 1. 100 mg p.o. daily. 2. ReVia 50 mg p.o. daily. 3. Amlodipine benazepril 1 each p.o. daily. FOLLOWUP: Mr. Thibodeaux will be evaluated by Dain Vicente and then discharged home. He is to take all medications as prescribed. He has been educated on alcohol abstinence. He is take all medications as prescribed. He can return to the ED or call 911 for any worsening of symptoms. Dictated by RONALD Wolff for Tawanda Conti MD cc: Tawanda Conti MD
--- NOTE | 2019-01-30 08:33 | DISCHARGE SUMMARY ---
ADMISSION DATE: 01/17/2019 DISCHARGE DATE: 01/29/2019 Patient seen and examined by myself. Full note dictated and discussed with nurse practitioner. On discharge, the patient is awake, alert. He is in no distress. States that he has no intent to harm himself, and in fact states he did not have intent to harm himself upon admission. Notes that he wants to stop drinking. Currently has been totally weaned off alcohol. He is stable. He is having no alcohol withdrawal issues. We did discuss with him, and in fact did give him a Vivitrol shot prior to discharge. Discussed with him that if he is unable to continue Vivitrol, he should start naltrexone, for which a prescription was written. Discussed the importance of stopping smoking as well as alcohol, and controlling blood pressures and blood sugars. TIME SPENT: Greater than 30 minutes were spent in total care and discharge. cc: Tawanda Conti MD
== END 2019-01-29 14:21 | disposition home or self-care (01) | DRG 896 ==
LOC: P.ED 15:34 → P.EDIPHOLD 19:50 → SUATTDRO 19:50 → P.MEDSURG 01-28 15:04
PROVIDERS: ATTEND Family Medicine